=== PATIENT | male | born 1980 | race Caucasian/White ===

== ENCOUNTER 2020-11-12 11:34 | Emergency (ER) | payer OTHER ==
[2020-11-12 11:37] VITALS: BP 143/95; PULSE 102; RESP 20; TEMP 97.6
[2020-11-12 12:04] LABS: Appearance,Urine Clear (Clear); Bilirubin,Urine Negative (Negative); Blood,Urine Negative (Negative); Color,Urine Yellow; Glucose,Urine (UA) Negative (Negative); Ketones,Urine Negative (Negative); Leukocyte Esterase,Urine Negative (Negative); Nitrite,Urine Negative (Negative); PH, Urine 5.5 (5.0-8.0); Protein,Urine Negative (Negative); Specific Gravity,Urine 1.023 (1.001-1.035); Urobilinogen,Urine <2.0 mg/dL (<2.0)
[2020-11-12] MEDS ORDERED: AZITHROMYCIN 250 MG TAB PO STA (12:19)
[2020-11-12] MEDS ORDERED: cefTRIAXone 250 MG VIAL IM STA (12:19)
--- NOTE | 2020-11-12 12:22 | ED ---
General Adult HPI - General Chief complaint: Abdominal Pain Stated complaint: male Time Seen by Provider: 11/12/20 11:39 Source: patient Mode of arrival: ambulatory Limitations: no limitations - History of Present Illness Initial comments: Patient is a 40-year-old male presenting to emergency Department with complaints of dysuria that started intermittent for the last month. He states it "only shah sometimes when he urinates." He denies any abdominal pain, no nausea or vomiting, no sores or swelling. He denies any discharge. He denies any fever or chills. He states he is not concerned for STDs but "is willing to have it checked." He denies taking any medications. He has no pertinent past medical history. He has no further complaints at this time. Upon arrival to the ER his vitals are stable. - Related Data Previous Rx's Medication Instructions Recorded traMADol HCl [Ultram] 50 mg PO Q6H PRN #15 tab 09/17/14 Allergies Allergy/AdvReac Type Severity Reaction Status Date / Time No Known Allergies Allergy Verified 11/12/20 11:37 Review of Systems ROS Statement: Those systems with pertinent positive or pertinent negative responses have been documented in the HPI. ROS Other: All systems not noted in ROS Statement are negative. Past Medical History Past Medical History: No Reported History Additional Past Medical History / Comment(s): back pain History of Any Multi-Drug Resistant Organisms: None Reported Past Surgical History: No Surgical Hx Reported Past Psychological History: No Psychological Hx Reported Smoking Status: Never smoker Past Alcohol Use History: None Reported Past Drug Use History: None Reported General Exam - General Exam Comments Initial Comments: GENERAL: Patient is well-developed and well-nourished. Patient is nontoxic and in no acute distress. HEAD: Atraumatic, normocephalic. EYES: Pupils equal round and reactive to light, extraocular movements intact, sclera anicteric, conjunctiva are normal. Eyelids were unremarkable. ENT: TMs normal, nares patent, oropharynx clear without exudates. Moist mucous membranes. NECK: Normal range of motion, supple without lymphadenopathy or JVD. LUNGS: Unlabored respirations. Breath sounds clear to auscultation bilaterally and equal. No wheezes rales or rhonchi. HEART: Regular rate and rhythm without murmurs, rubs or gallops. ABDOMEN: Soft, nontender, normoactive bowel sounds. No guarding, no rebound. No masses appreciated. : Deferred MUSCULOSKELETAL: Normal extremities with adequate strength and normal range of motion, no pitting or edema. No clubbing or cyanosis. NEUROLOGICAL: Patient is alert and oriented x 3. Motor and sensory are also intact. Normal speech, normal gait. PSYCH: Normal mood, normal affect. SKIN: Warm, Dry, normal turgor, no rashes or lesions noted. Limitations: no limitations Course Vital Signs 11/12/20 11:34 Temperature 97.6 F Pulse Rate 102 H Respiratory 20 Rate Blood Pressure 143/95 O2 Sat by Pulse 97 Oximetry Medical Decision Making - Medical Decision Making Patient is a 40-year-old male presenting with dysuria and intermittent for the past month. He has no other symptoms, no pain at this time. His exam is unremarkable, no sores, no swelling, no discharge. Patient's analysis is unremarkable. I did add on a gonorrhea, chlamydia, Trichomonas which are all pending. She will be treated for possible gonorrhea and chlamydia with Rocephin and azithromycin today. If symptoms persist and testing are all negative, he will follow up with his PCP. He is in agreement this plan of care. He is stable for discharge. Case discussed with Dr. Sen. - Lab Data Lab Results 11/12/20 Range/Units 11:54 Urine Color Yellow Urine Appearance Clear (Clear) Urine pH 5.5 (5.0-8.0) Ur Specific Art 1.023 (1.001-1.035) Urine Protein Negative (Negative) Urine Glucose (UA) Negative (Negative) Urine Ketones Negative (Negative) Urine Blood Negative (Negative) Urine Nitrite Negative (Negative) Urine Bilirubin Negative (Negative) Urine Urobilinogen <2.0 (<2.0) mg/dL Ur Leukocyte Esterase Negative (Negative) Disposition Clinical Impression: Dysuria Disposition: HOME SELF-CARE Condition: Stable Instructions (If sedation given, give patient instructions): Dysuria (ED) Additional Instructions: Please return to the Emergency Department if symptoms worsen or any other concerns. If symptoms persist, follow up with your regular doctor. Is patient prescribed a controlled substance at d/c from ED?: No Referrals: Juventino Magana MD [Primary Care Provider] - 1-2 days
== END 2020-11-12 12:31 | disposition home or self-care (01) ==
LOC: EC 11:34
DX: R30.0 Dysuria (principal)
CPT/HCPCS: 81003; 87491; 87591; 99284; 96372; J0696

== ENCOUNTER 2021-10-10 13:21 | Emergency (ER) | payer OTHER ==
[2021-10-10 13:54] VITALS: BP 123/85; PULSE 74; RESP 18; TEMP 99.7
[2021-10-10] MEDS ORDERED: FLUORESCEIN STRIPS 1 MG STRIP BOTH EYES ONE (15:22)
--- NOTE | 2021-10-10 15:49 | ED ---
General Adult HPI - General Chief complaint: Eye Problems Stated complaint: L Eye Problem Time Seen by Provider: 10/10/21 15:04 Source: patient, RN notes reviewed Limitations: no limitations - History of Present Illness Initial comments: 41-year-old male presents to the emergency department for evaluation of left eye irritation. States this is been an ongoing issue for several weeks and was seen by an grief counselor who referred him to an derrick car operator. However, patient states he woke up this morning with drainage from the left eye which is new for him. He describes the drainage as thick and yellow. Patient denies any vision changes, blurry vision, foreign body, or injury. - Related Data Previous Rx's Medication Instructions Recorded Polymyxin B-Trimeth Sulf Ophth 1 drops LEFT EYE Q6H 7 Days #10 ml 10/10/21 [Polytrim Opthalmic] Allergies Allergy/AdvReac Type Severity Reaction Status Date / Time No Known Allergies Allergy Verified 10/10/21 13:52 Review of Systems ROS Statement: Those systems with pertinent positive or pertinent negative responses have been documented in the HPI. ROS Other: All systems not noted in ROS Statement are negative. Past Medical History Past Medical History: No Reported History Additional Past Medical History / Comment(s): back pain History of Any Multi-Drug Resistant Organisms: None Reported Past Surgical History: No Surgical Hx Reported Past Psychological History: No Psychological Hx Reported Smoking Status: Never smoker Past Alcohol Use History: None Reported Past Drug Use History: None Reported General Exam Limitations: no limitations General appearance: alert, in no apparent distress Eye exam: Present: PERRL, EOMI, conjunctival injection (left eye). Absent: periorbital swelling, periorbital tenderness Pupils: Present: normal accommodation, other (No focal area of fluorescein uptake bilaterally) Expanded Eyelids: Normal Inspection: Bilateral Pupils: Regular, Round: Bilateral, Reactive: Bilateral Sclera/Conjunctival: Normal Inspection: Right, Injection: Left Visual acuity (R) = 20/: 20 Visual acuity (L) = 20/: 20 With correction: No IOP (R) in mmH IOP (L) in mmH IOP measured with: Tonopen ENT exam: Present: normal exam, normal oropharynx, mucous membranes moist Respiratory exam: Present: normal lung sounds bilaterally. Absent: respiratory distress, wheezes, rales, rhonchi, stridor Cardiovascular Exam: Present: regular rate, normal rhythm, normal heart sounds. Absent: systolic murmur, diastolic murmur, rubs, gallop, clicks GI/Abdominal exam: Present: soft, normal bowel sounds. Absent: distended, tenderness, guarding, rebound, rigid Neurological exam: Present: alert, oriented X3, CN II-XII intact Psychiatric exam: Present: normal affect, normal mood Skin exam: Present: warm, dry, intact, normal color. Absent: rash Course Vital Signs 10/10/21 13:52 Temperature 99.7 F H Pulse Rate 74 Respiratory 18 Rate Blood Pressure 123/85 O2 Sat by Pulse 98 Oximetry Medical Decision Making - Medical Decision Making 41-year-old male with no significant past medical history presents to the emergency department for evaluation of left eye irritation. Conjunctival injection noted to the left eye; no active drainage at this time. No injury, trauma, or foreign body. No vision changes. Visual acuity 20/20 bilaterally. Fluorescein exam negative for any focal area of uptake. IOP within normal limits. Patient will be prescribed antibiotic eyedrops and instructed to follow-up with ophthalmology as scheduled. Return parameters were discussed in detail. Patient verbalizes understanding and agrees with this plan. This patient's care was discussed with my attending Dr. Marina. Disposition Clinical Impression: Bacterial conjunctivitis Disposition: HOME SELF-CARE Condition: Stable Instructions (If sedation given, give patient instructions): Conjunctivitis (ED ) Additional Instructions: Follow-up with Dr. Magana as we discussed. Use the antibiotic eyedrops as directed. Wash your hands frequently. Return to the emergency department with any new, worsening, or concerning symptoms. Prescriptions: Polymyxin B-Trimeth Sulf Ophth [Polytrim Opthalmic] 1 drops LEFT EYE Q6H 7 Days #10 ml Is patient prescribed a controlled substance at d/c from ED?: No Referrals: Juventino Magana MD [Primary Care Provider] - 1-2 days
== END 2021-10-10 16:41 | disposition home or self-care (01) ==
LOC: EC 13:21
DX: H10.9 Unspecified conjunctivitis (principal)
CPT/HCPCS: 99283

== ENCOUNTER → 2022-05-28 | Outpatient (CLI) | payer OTHER ==
--- NOTE | 2022-05-29 10:18 | CA ---
Transthoracic Echo Report Name: Gavino Alcala Age: 41 Gender: M : 1980 Exam Date: 05/28/2022 13:20 Exam Location: [place] [facility] Ht (in): 71 Wt (lb): 217 Ordering Physician: Juventino Magana MD Attending/Referring Phys: [place] BLAS Field Recorder Shama Merritt RDCS Procedure CPT: Indications: R42 Dizziness, I49.2 fluttering of heart Cardiac Hx: Technical Quality: Fair Contrast 1: Total Dose (mL): Contrast 2: Total Dose (mL): MEASUREMENTS (Male / Female) Normal Values 2D ECHO LV Diastolic Diameter PLAX 4.2 cm 4.2 - 5.9 / 3.9 - 5.3 cm LV Systolic Diameter PLAX 2.7 cm IVS Diastolic Thickness 1.2 cm 0.6 - 1.0 / 0.6 - 0.9 cm LVPW Diastolic Thickness 1.1 cm 0.6 - 1.0 / 0.6 - 0.9 cm LV Relative Wall Thickness 0.6 RV Internal Dim ED PLAX 2.2 cm LA Volume 25.9 cm??? 18 - 58 / 22 - 52 cm??? M-MODE Aortic Root Diameter MM 3.5 cm LA Systolic Diameter MM 3.3 cm LA Ao Ratio MM 0.9 MV E Point Septal Separation 1.4 cm AV Cusp Separation MM 2.3 cm DOPPLER AV Peak Velocity 124.5 cm/s AV Peak Gradient 6.2 mmHg MV Area PHT 4.6 cm??? MR Peak Velocity 347.4 cm/s MR Peak Gradient 48.3 mmHg Mitral E Point Velocity 64.8 cm/s Mitral A Point Velocity 80.4 cm/s Mitral E to A Ratio 0.8 MV Deceleration Time 164.5 ms MV E' Velocity 6.6 cm/s Mitral E to MV E' Ratio 9.8 TR Peak Velocity 136.0 cm/s TR Peak Gradient 7.4 mmHg Right Ventricular Systolic Press 12.3 mmHg FINDINGS Left Ventricle Mildly increased septal wall thickness. Left ventricular ejection fraction is estimated at 50-55 %. Left ventricular cavity size normal. Right Ventricle The right ventricle is normal in size and function. Right Atrium The right atrium is normal in size. Left Atrium The left atrium is normal in size. Mitral Valve Structurally normal mitral valve without significant stenosis or prolapse. There is trace mitral regurgitation. Aortic Valve Structurally normal aortic valve without significant sclerosis or stenosis. There is no aortic regurgitation. Tricuspid Valve Structurally normal tricuspid valve without significant stenosis. Pulmonary artery systolic pressure is normal. Trace tricuspid regurgitation. Pulmonic Valve Structurally normal pulmonic valve without significant stenosis. There is no pulmonic regurgitation. Pericardium Normal pericardium without effusion. Aorta Normal aortic root dimension. CONCLUSIONS Normal left ventricular dimension and systolic function Previewed by: Dr. Elio Lovett MD (Electronically Signed) Final Date: 29 May 2022 10:17
== END | disposition home or self-care (01) ==
LOC: RADECHMAIN 13:16
PROVIDERS: ATTEND Family Medicine
DX: R42 Dizziness and giddiness (principal); I49.2 Junctional premature depolarization
CPT/HCPCS: 93306

== ENCOUNTER 2022-06-14 21:28 | Emergency (ER) | payer OTHER ==
[2022-06-14 21:45] VITALS: BP 118/81; PULSE 91; RESP 16; TEMP 98.9
--- NOTE | 2022-06-14 22:14 | XR ---
EXAMINATION TYPE: XR knee complete RT DATE OF EXAM: 06/14/2022 COMPARISON: NONE HISTORY: Knee pain TECHNIQUE: 3 views FINDINGS: There is intramedullary marla in the proximal tibia. I see no fracture nor dislocation. Knee joint spaces are fairly normal. No significant knee joint effusion. IMPRESSION: No acute abnormality of the right knee.
== END 2022-06-14 22:36 | disposition left against medical advice (07) ==
LOC: EC 21:28
DX: Z53.21 Procedure and treatment not carried out due to patient leaving prior to being seen by health care provider (principal); R52 Pain, unspecified
CPT/HCPCS: 99499

== ENCOUNTER 2022-07-04 11:16 | Emergency (ER) | payer OTHER ==
[2022-07-04 11:21] VITALS: RESP 18
[2022-07-04] MEDS ORDERED: SODIUM CHLORIDE 0.9% 1,000 ML IV STA (11:30)
[2022-07-04] MEDS ORDERED: ONDANSETRON 4 MG/2 ML VIAL IVP STA (11:30)
[2022-07-04] MEDS ORDERED: FAMOTIDINE 20 MG/2 ML VIAL IV STA (11:31)
--- NOTE | 2022-07-04 11:35 | ED ---
Nausea/Vomiting/Diarrhea HPI - General Chief complaint: Nausea/Vomiting/Diarrhea Stated complaint: Nausea,abd pain Time Seen by Provider: 07/04/22 11:18 Source: patient, RN notes reviewed Mode of arrival: ambulatory Limitations: no limitations - History of Present Illness Initial comments: This is a 41-year-old male who presents to the emergency department for nausea and left knee pain. Patient states that when he woke up this morning, he felt very nauseous. He has not had any episodes of vomiting. States that he had tomatoes last night and wonders if that upset his stomach. He reports associated diarrhea. Denies any abdominal pain. Additionally, he states that he has been experiencing increasing left knee pain. States that he has had arth ritis in the left knee for the last couple of years. He works as a electric train driver, and states that keeping his knee bent in one position for long periods of time contributes to increased episodes of pain. This is similar to episodes of pain he has had in the past. He has not taken anything for the pain. Denies any fevers, chills, sore throat, cough, dyspnea, chest pain, palpitations, abdominal pain, vomiting, back pain, or headaches. MD complaint: nausea, diarrhea Associated Abdominal Pain: No - Related Data Previous Rx's Medication Instructions Recorded Ondansetron Odt [Zofran Odt] 4 mg PO Q8HR PRN #15 tab 07/04/22 Allergies Allergy/AdvReac Type Severity Reaction Status Date / Time No Known Allergies Allergy Verified 07/04/22 12:35 Review of Systems ROS Statement: Those systems with pertinent positive or pertinent negative responses have been documented in the HPI. ROS Other: All systems not noted in ROS Statement are negative. Past Medical History Past Medical History: No Reported History Additional Past Medical History / Comment(s): back pain History of Any Multi-Drug Resistant Organisms: None Reported Past Surgical History: No Surgical Hx Reported Past Psychological History: No Psychological Hx Reported Smoking Status: Never smoker Past Alcohol Use History: None Reported Past Drug Use History: None Reported General Exam Limitations: no limitations General appearance: alert, in no apparent distress Head exam: Present: atraumatic, normocephalic, normal inspection Respiratory exam: Present: normal lung sounds bilaterally. Absent: respiratory distress, wheezes, rales, rhonchi, stridor Cardiovascular Exam: Present: regular rate, normal rhythm, normal heart sounds. Absent: systolic murmur, diastolic murmur, rubs, gallop, clicks GI/Abdominal exam: Present: soft, normal bowel sounds. Absent: distended, tenderness, guarding, rebound, rigid Extremities exam: Present: other (No swelling or tenderness over the left patella. Negative Myles's. Full active and passive range of motion.) Neurological exam: Present: alert, oriented X3, CN II-XII intact Psychiatric exam: Present: normal affect, normal mood Skin exam: Present: warm, dry, intact, normal color. Absent: rash Course Vital Signs 07/04/22 07/04/22 11:19 11:50 Temperature 98.3 F Pulse Rate 80 Respiratory 18 18 Rate Blood Pressure 121/82 O2 Sat by Pulse 99 Oximetry Medical Decision Making - Medical Decision Making This is a 41-year-old male who presents to the emergency department for nausea and left knee pain. Lab work was nonactionable. Urinalysis was negative for any signs of infection. X-ray of the left knee obtained revealing no acute irregularities. He was given a dose of IV Solu-Medrol to help with pain, swelling, and inflammation of the knee. Patient was also given IV fluids, Zofran, and Pepcid, which he states helped the nausea and queasiness he was experiencing. He is overall feeling much better and is stable for discharge home. Prescription for Zofran sent to the pharmacy to be taken up to every 8 hours as needed for nausea and vomiting. He is instructed to remain well- hydrated and slowly advance his diet as tolerated. Advised ibuprofen and Tyle nol as needed for pain relief for the knee. Return precautions reviewed in depth, the patient is instructed to return to the emergency department with any new, worsening, or concerning symptoms. Patient verbalized understanding. This case was discussed in detail with the attending ED physician. Presentation, findings, and treatment plan discussed in detail as well. - Lab Data Result diagrams: 07/04/22 11:44 07/04/22 11:44 Lab Results 07/04/22 07/04/22 07/04/22 Range/Units 11:44 11:44 12:18 WBC 9.3 (3.8-10.6) k/uL RBC 4.57 (4.30-5.90) m/uL Hgb 15.2 (13.0-17.5) gm/dL Hct 45.1 (39.0-53.0) % MCV 98.7 (80.0-100.0) fL MCH 33.2 (25.0-35.0) pg MCHC 33.7 (31.0-37.0) g/dL RDW 12.8 (11.5-15.5) % Plt Count 201 (150-450) k/uL MPV 8.3 Neutrophils % 67 % Lymphocytes % 24 % Monocytes % 5 % Eosinophils % 2 % Basophils % 0 % Neutrophils # 6.3 (1.3-7.7) k/uL Lymphocytes # 2.3 (1.0-4.8) k/uL Monocytes # 0.4 (0-1.0) k/uL Eosinophils # 0.2 (0-0.7) k/uL Basophils # 0.0 (0-0.2) k/uL Sodium 139 (137-145) mmol/L Potassium 3.9 (3.5-5.1) mmol/L Chloride 107 (98-107) mmol/L Carbon Dioxide 23 (22-30) mmol/L Anion Gap 9 mmol/L BUN 17 (9-20) mg/dL Creatinine 0.84 (0.66-1.25) mg/dL Est GFR (CKD-EPI)AfAm >90 (>60 ml/min/1.73 sqM) Est GFR (CKD-EPI)NonAf >90 (>60 ml/min/1.73 sqM) Glucose 147 H (74-99) mg/dL Calcium 9.3 (8.4-10.2) mg/dL Total Bilirubin 0.5 (0.2-1.3) mg/dL AST 20 (17-59) U/L ALT 21 (4-49) U/L Alkaline Phosphatase 75 (38-126) U/L Total Protein 6.4 (6.3-8.2) g/dL Albumin 4.3 (3.5-5.0) g/dL Amylase 77 (30-110) U/L Lipase 162 (23-300) U/L Urine Color Yellow Urine Appearance Clear (Clear) Urine pH 6.5 (5.0-8.0) Ur Specific [place] 1.029 (1.001-1.035) Urine Protein Trace H (Negative) Urine Glucose (UA) Negative (Negative) Urine Ketones Negative (Negative) Urine Blood Negative (Negative) Urine Nitrite Negative (Negative) Urine Bilirubin Negative (Negative) Urine Urobilinogen 2.0 (<2.0) mg/dL Ur Leukocyte Esterase Negative (Negative) - Radiology Data Radiology results: report reviewed, image reviewed Disposition Clinical Impression: Nausea Disposition: HOME SELF-CARE Instructions (If sedation given, give patient instructions): Acute Nausea and Vomiting (ED), Knee Pain (ED) Additional Instructions: Return to the emergency department with any new, worsening, or concerning symptoms. The Zofran can be taken up to every 8 hours as needed for nausea and vomiting. Slowly advance your diet as tolerated and make sure that you remain well-hydrated. Alternate with ibuprofen and Tylenol as needed for pain relief to the knee. Prescriptions: Ondansetron Odt [Zofran Odt] 4 mg PO Q8HR PRN #15 tab PRN Reason: Nausea And Vomiting Is patient prescribed a controlled substance at d/c from ED?: No Referrals: Juventino Magana MD [Primary Care Provider] - 1-2 days
[2022-07-04 11:57] LABS: Basophils % (A) 0 %; Eosinophils # (A) 0.2 k/uL (0-0.7); Eosinophils % (A) 2 %; HCT 45.1 % (39.0-53.0); HGB 15.2 gm/dL (13.0-17.5); Lymphocytes # (A) 2.3 k/uL (1.0-4.8); Lymphocytes % (A) 24 %; MCH 33.2 pg (25.0-35.0); MCHC 33.7 g/dL (31.0-37.0); MCV 98.7 fL (80.0-100.0); Mean Platelet Volume 8.3; Monocytes # (A) 0.4 k/uL (0-1.0); Monocytes % (A) 5 %; Neutrophils # (A) 6.3 k/uL (1.3-7.7); Neutrophils % (A) 67 %; Platelet Count 201 k/uL (150-450); RBC 4.57 m/uL (4.30-5.90); RDW 12.8 % (11.5-15.5); WBC 9.3 k/uL (3.8-10.6)
[2022-07-04 12:10] LABS: ALT 21 U/L (4-49); AST 20 U/L (17-59); African American GFR (CKD) >90 (>60 ml/min/1.73 sqM); Albumin 4.3 g/dL (3.5-5.0); Alkaline Phosphatase 75 U/L (38-126); Amylase 77 U/L (30-110); Anion Gap 9 mmol/L; Blood Urea Nitrogen 17 mg/dL (9-20); Calcium 9.3 mg/dL (8.4-10.2); Carbon Dioxide 23 mmol/L (22-30); Chloride 107 mmol/L (98-107); Glucose 147 mg/dL (74-99); Lipase 162 U/L (23-300); Non-African American GFR(CKD) >90 (>60 ml/min/1.73 sqM); Potassium 3.9 mmol/L (3.5-5.1); Sodium 139 mmol/L (137-145); Total Bilirubin 0.5 mg/dL (0.2-1.3); Total Protein 6.4 g/dL (6.3-8.2)
[2022-07-04] MEDS ORDERED: methylPREDNISolone SOD SUCCI 125 MG/2 ML VIAL IV STA (12:14)
--- NOTE | 2022-07-04 12:23 | XR ---
EXAMINATION TYPE: XR knee complete LT DATE OF EXAM: 07/04/2022 COMPARISON: None HISTORY: 41-year-old male with left knee pain TECHNIQUE: AP, oblique, and lateral views FINDINGS: No knee joint effusion. Extensor mechanism is intact. No acute fracture, subluxation, or dislocation is seen. IMPRESSION: No acute osseous abnormality seen.
[2022-07-04 12:44] LABS: Appearance,Urine Clear (Clear); Bilirubin,Urine Negative (Negative); Blood,Urine Negative (Negative); Color,Urine Yellow; Glucose,Urine (UA) Negative (Negative); Ketones,Urine Negative (Negative); Leukocyte Esterase,Urine Negative (Negative); Nitrite,Urine Negative (Negative); PH, Urine 6.5 (5.0-8.0); Protein,Urine Trace (Negative); Specific Gravity,Urine 1.029 (1.001-1.035)
[2022-07-04 13:02] VITALS: BP 115/70; PULSE 73; TEMP 98.4
== END 2022-07-04 13:02 | disposition home or self-care (01) ==
LOC: EC 11:16
DX: R11.2 Nausea with vomiting, unspecified (principal); M25.562 Pain in left knee
CPT/HCPCS: 36415; 80053; 82150; 83690; 85025; 81003; 73562; 99284; 96374; 96375 ×2; 96361; J2930; J2405

== ENCOUNTER 2022-07-10 10:46 | Emergency (ER) | payer OTHER ==
[2022-07-10 11:45] VITALS: RESP 16
[2022-07-10] MEDS ORDERED: ACYCLOVIR 400 MG/10 ML CUP PO ONE (13:22)
[2022-07-10] MEDS ORDERED: ACYCLOVIR 200 MG CAP PO ONE ×2 (13:30→14:28)
[2022-07-10 14:30] LABS: Appearance,Urine Clear (Clear); Bilirubin,Urine Negative (Negative); Blood,Urine Negative (Negative); Color,Urine Light Yellow; Glucose,Urine (UA) Negative (Negative); Ketones,Urine Negative (Negative); Leukocyte Esterase,Urine Negative (Negative); Nitrite,Urine Negative (Negative); PH, Urine 6.5 (5.0-8.0); Protein,Urine Negative (Negative); Specific Gravity,Urine 1.013 (1.001-1.035); Urobilinogen,Urine <2.0 mg/dL (<2.0)
[2022-07-10 14:33] LABS: ALT 23 U/L (4-49); AST 22 U/L (17-59); African American GFR (CKD) >90 (>60 ml/min/1.73 sqM); Albumin 4.6 g/dL (3.5-5.0); Alkaline Phosphatase 78 U/L (38-126); Anion Gap 11 mmol/L; Blood Urea Nitrogen 13 mg/dL (9-20); Calcium 9.5 mg/dL (8.4-10.2); Carbon Dioxide 23 mmol/L (22-30); Chloride 104 mmol/L (98-107); Glucose 114 mg/dL (74-99); Lipase 60 U/L (23-300); Non-African American GFR(CKD) >90 (>60 ml/min/1.73 sqM); Potassium 4.3 mmol/L (3.5-5.1); Sodium 138 mmol/L (137-145); Total Bilirubin 0.5 mg/dL (0.2-1.3); Total Protein 6.8 g/dL (6.3-8.2)
[2022-07-10 14:34] LABS: Basophils # (A) 0.1 k/uL (0-0.2); Basophils % (A) 0 %; Eosinophils # (A) 0.1 k/uL (0-0.7); Eosinophils % (A) 1 %; HCT 46.8 % (39.0-53.0); HGB 15.9 gm/dL (13.0-17.5); Lymphocytes # (A) 2.7 k/uL (1.0-4.8); Lymphocytes % (A) 24 %; MCH 33.1 pg (25.0-35.0); MCHC 33.9 g/dL (31.0-37.0); MCV 97.7 fL (80.0-100.0); Mean Platelet Volume 8.7; Monocytes # (A) 0.4 k/uL (0-1.0); Monocytes % (A) 4 %; Neutrophils # (A) 7.9 k/uL (1.3-7.7); Neutrophils % (A) 70 %; Platelet Count 215 k/uL (150-450); RBC 4.79 m/uL (4.30-5.90); RDW 13.1 % (11.5-15.5); WBC 11.4 k/uL (3.8-10.6)
--- NOTE | 2022-07-10 15:37 | ED ---
Skin/Abscess/FB HPI - General Chief complaint: Skin/Abscess/Foreign Body Stated complaint: stomach pain Time Seen by Provider: 07/10/22 13:04 Source: patient Mode of arrival: ambulatory Limitations: no limitations - History of Present Illness Initial comments: Patient is a 41-year-old otherwise healthy male who presents to the emergency department with a chief complaint of abdominal pain. Patient states his stomach hurt for approximately 30 minutes this morning which has since resolved. Pain was all over his abdomen. Patient states he had a bowel movement which made it feel better. Bowel movement was nonbloody, no diarrhea. States he had fish for dinner last night which he thinks is related to the pain. Denies fever, chills, nausea, vomiting. Patient also concern with rash over his buttocks. States he has fleas in his house and feels that rash is related to fleas. Noticed a rash 2 weeks ago. Rash is not painful. It is no longer itchy. Patient also expresses concern regarding lesions on his penis. States he has history of genital herpes and feels that he is having an outbreak. States the lesions were initially painful. Denies penile discharge and burning with urination. Denies eye pain, blurry vision. - Related Data Previous Rx's Medication Instructions Recorded Acyclovir 800 mg PO TID 5 Days #15 tab 07/10/22 Allergies Allergy/AdvReac Type Severity Reaction Status Date / Time No Known Allergies Allergy Verified 07/10/22 14:44 Review of Systems ROS Statement: Those systems with pertinent positive or pertinent negative responses have been documented in the HPI. ROS Other: All systems not noted in ROS Statement are negative. Past Medical History Past Medical History: No Reported History Additional Past Medical History / Comment(s): back pain History of Any Multi-Drug Resistant Organisms: None Reported Past Surgical History: No Surgical Hx Reported Past Psychological History: No Psychological Hx Reported Smoking Status: Never smoker Past Alcohol Use History: None Reported Past Drug Use History: None Reported General Exam Limitations: no limitations General appearance: alert, in no apparent distress Head exam: Present: atraumatic, normocephalic, normal inspection Respiratory exam: Present: normal lung sounds bilaterally. Absent: respiratory distress, wheezes, rales, rhonchi, stridor Cardiovascular Exam: Present: regular rate, normal rhythm, normal heart sounds. Absent: systolic murmur, diastolic murmur, rubs, gallop, clicks GI/Abdominal exam: Present: soft, normal bowel sounds. Absent: distended, tenderness, guarding, rebound, rigid Rectal exam: Present: other (flea bites in gluteal cleft region without surrounding erythema/swelling ) exam: Present: other (3 lesions over dorsal penis resembling HSV ) Neurological exam: Present: alert, oriented X3, CN II-XII intact Psychiatric exam: Present: normal affect, normal mood Skin exam: Present: warm, dry, intact, normal color. Absent: rash Course Vital Signs 07/10/22 07/10/22 11:43 15:48 Temperature 98.2 F 97.8 F Pulse Rate 93 85 Respiratory 16 16 Rate Blood Pressure 142/96 119/76 O2 Sat by Pulse 98 98 Oximetry Medical Decision Making - Medical Decision Making This is a 41-year-old male presenting after episode of abdominal pain that has since resolved.Patient well-appearing. Afebrile. The abdomen is soft and nontender. Healing flea bites over her gluteal cleft and HSV lesions on dorsal penis. Laboratory studies obtained. There is very mild leukocytosis at 11.4. Other laboratory studies are unremarkable. Given patient's history of HSV and physical exam I will treat him for outbreak. Patient also requests testing for other sexually transmitted infections. Chlamydia, gonorrhea, and syphilis testing were performed. Patient to follow up with primary care provider. Dr. Marina is my attending. - Lab Data Result diagrams: 07/10/22 14:10 07/10/22 14:10 Lab Results 07/10/22 07/10/22 07/10/22 Range/Units 11:53 14:10 14:10 WBC 11.4 H (3.8-10.6) k/uL RBC 4.79 (4.30-5.90) m/uL Hgb 15.9 (13.0-17.5) gm/dL Hct 46.8 (39.0-53.0) % MCV 97.7 (80.0-100.0) fL MCH 33.1 (25.0-35.0) pg MCHC 33.9 (31.0-37.0) g/dL RDW 13.1 (11.5-15.5) % Plt Count 215 (150-450) k/uL MPV 8.7 Neutrophils % 70 % Lymphocytes % 24 % Monocytes % 4 % Eosinophils % 1 % Basophils % 0 % Neutrophils # 7.9 H (1.3-7.7) k/uL Lymphocytes # 2.7 (1.0-4.8) k/uL Monocytes # 0.4 (0-1.0) k/uL Eosinophils # 0.1 (0-0.7) k/uL Basophils # 0.1 (0-0.2) k/uL Sodium (137-145) mmol/L Potassium (3.5-5.1) mmol/L Chloride (98-107) mmol/L Carbon Dioxide (22-30) mmol/L Anion Gap mmol/L BUN (9-20) mg/dL Creatinine (0.66-1.25) mg/dL Est GFR (CKD-EPI)AfAm (>60 ml/min/1.73 sqM) Est GFR (CKD-EPI)NonAf (>60 ml/min/1.73 sqM) Glucose (74-99) mg/dL Calcium (8.4-10.2) mg/dL Total Bilirubin (0.2-1.3) mg/dL AST (17-59) U/L ALT (4-49) U/L Alkaline Phosphatase (38-126) U/L Total Protein (6.3-8.2) g/dL Albumin (3.5-5.0) g/dL Lipase (23-300) U/L Urine Color Light Yellow Urine Appearance Clear (Clear) Urine pH 6.5 (5.0-8.0) Ur Specific [place] 1.013 (1.001-1.035) Urine Protein Negative (Negative) Urine Glucose (UA) Negative (Negative) Urine Ketones Negative (Negative) Urine Blood Negative (Negative) Urine Nitrite Negative (Negative) Urine Bilirubin Negative (Negative) Urine Urobilinogen <2.0 (<2.0) mg/dL Ur Leukocyte Esterase Negative (Negative) Treponema pallidum Ab (Nonreactive) Chlamydia Source Chlamydia DNA (PCR) (Neg,Equiv) Coronavirus (PCR) Not Detected (Not Detectd) N. gonorrhoeae Source N.gonorrhoeae DNA Probe (Neg,Equiv) 07/10/22 07/10/22 07/10/22 Range/Units 14:10 14:10 15:00 WBC (3.8-10.6) k/uL RBC (4.30-5.90) m/uL Hgb (13.0-17.5) gm/dL Hct (39.0-53.0) % MCV (80.0-100.0) fL MCH (25.0-35.0) pg MCHC (31.0-37.0) g/dL RDW (11.5-15.5) % Plt Count (150-450) k/uL MPV Neutrophils % % Lymphocytes % % Monocytes % % Eosinophils % % Basophils % % Neutrophils # (1.3-7.7) k/uL Lymphocytes # (1.0-4.8) k/uL Monocytes # (0-1.0) k/uL Eosinophils # (0-0.7) k/uL Basophils # (0-0.2) k/uL Sodium 138 (137-145) mmol/L Potassium 4.3 (3.5-5.1) mmol/L Chloride 104 (98-107) mmol/L Carbon Dioxide 23 (22-30) mmol/L Anion Gap 11 mmol/L BUN 13 (9-20) mg/dL Creatinine 0.84 (0.66-1.25) mg/dL Est GFR (CKD-EPI)AfAm >90 (>60 ml/min/1.73 sqM) Est GFR (CKD-EPI)NonAf >90 (>60 ml/min/1.73 sqM) Glucose 114 H (74-99) mg/dL Calcium 9.5 (8.4-10.2) mg/dL Total Bilirubin 0.5 (0.2-1.3) mg/dL AST 22 (17-59) U/L ALT 23 (4-49) U/L Alkaline Phosphatase 78 (38-126) U/L Total Protein 6.8 (6.3-8.2) g/dL Albumin 4.6 (3.5-5.0) g/dL Lipase 60 (23-300) U/L Urine Color Urine Appearance (Clear) Urine pH (5.0-8.0) Ur Specific [place] (1.001-1.035) Urine Protein (Negative) Urine Glucose (UA) (Negative) Urine Ketones (Negative) Urine Blood (Negative) Urine Nitrite (Negative) Urine Bilirubin (Negative) Urine Urobilinogen (<2.0) mg/dL Ur Leukocyte Esterase (Negative) Treponema pallidum Ab Nonreactive (Nonreactive) Chlamydia Source Urine Chlamydia DNA (PCR) Negative (Neg,Equiv) Coronavirus (PCR) (Not Detectd) N. gonorrhoeae Source Urine N.gonorrhoeae DNA Probe Negative (Neg,Equiv) Disposition Clinical Impression: Stomach pain, Flea bite, Herpes simplex virus (HSV) infection Disposition: HOME SELF-CARE Condition: Good Instructions (If sedation given, give patient instructions): Genital Herpes Simplex (ED) Additional Instructions: Take medication as directed. Follow-up with primary care provider in one to 2 days. Return to the emergency department if you experience new, concerning, or worsening symptoms. Prescriptions: Acyclovir 800 mg PO TID 5 Days #15 tab Is patient prescribed a controlled substance at d/c from ED?: No Referrals: Juventino Magana MD [Primary Care Provider] - 1-2 days Time of Disposition: 15:37
[2022-07-10 15:49] VITALS: BP 119/76; PULSE 85; TEMP 97.8
[2022-07-11 15:27] LABS: C. trachomatis,PCR Negative (Neg,Equiv); Chlamydia trachomatis Source Urine; N. gonorrhoeae,PCR Negative (Neg,Equiv); Neisseria Source Urine
== END 2022-07-10 15:50 | disposition home or self-care (01) ==
LOC: EC 10:46
DX: B00.9 Herpesviral infection, unspecified (principal); R10.9 Unspecified abdominal pain; Z20.822 Contact with and (suspected) exposure to COVID-19
CPT/HCPCS: 36415; 80053; 81003; 83690; 85025; 86780; 87491; 87591; 87635; 99283

== ENCOUNTER 2022-07-17 08:53 | Emergency (ER) | payer OTHER ==
[2022-07-17 09:45] VITALS: BP 119/85; PULSE 75; RESP 16; TEMP 98.3
[2022-07-17] MEDS ORDERED: cefTRIAXone 1,000 MG VIAL (IM USE) IM STA (10:48)
[2022-07-17 11:01] LABS: Appearance,Urine Clear (Clear); Bilirubin,Urine Negative (Negative); Blood,Urine Negative (Negative); Color,Urine Yellow; Glucose,Urine (UA) Negative (Negative); Ketones,Urine Negative (Negative); Leukocyte Esterase,Urine Negative (Negative); Nitrite,Urine Negative (Negative); PH, Urine 5.5 (5.0-8.0); Protein,Urine Trace (Negative); Specific Gravity,Urine 1.022 (1.001-1.035); Urobilinogen,Urine <2.0 mg/dL (<2.0)
--- NOTE | 2022-07-17 11:04 | ED ---
General Adult HPI - General Chief complaint: Urogenital Stated complaint: painful urination Time Seen by Provider: 07/17/22 09:46 Source: patient, RN notes reviewed Mode of arrival: ambulatory Limitations: no limitations - Related Data Previous Rx's Medication Instructions Recorded Acyclovir 800 mg PO TID 5 Days #15 tab 07/10/22 Doxycycline [Vibramycin] 100 mg PO BID #14 capsule 07/17/22 Allergies Allergy/AdvReac Type Severity Reaction Status Date / Time No Known Allergies Allergy Verified 07/17/22 09:44 Review of Systems ROS Statement: Those systems with pertinent positive or pertinent negative responses have been documented in the HPI. ROS Other: All systems not noted in ROS Statement are negative. Past Medical History Past Medical History: No Reported History Additional Past Medical History / Comment(s): back pain History of Any Multi-Drug Resistant Organisms: None Reported Past Surgical History: No Surgical Hx Reported Past Psychological History: No Psychological Hx Reported Smoking Status: Never smoker Past Alcohol Use History: None Reported Past Drug Use History: None Reported General Exam Limitations: no limitations Course Vital Signs 07/17/22 09:42 Temperature 98.3 F Pulse Rate 75 Respiratory 16 Rate Blood Pressure 119/85 O2 Sat by Pulse 99 Oximetry Medical Decision Making - Lab Data Lab Results 07/17/22 Range/Units 10:26 Urine Color Yellow Urine Appearance Clear (Clear) Urine pH 5.5 (5.0-8.0) Ur Specific [place] 1.022 (1.001-1.035) Urine Protein Trace H (Negative) Urine Glucose (UA) Negative (Negative) Urine Ketones Negative (Negative) Urine Blood Negative (Negative) Urine Nitrite Negative (Negative) Urine Bilirubin Negative (Negative) Urine Urobilinogen <2.0 (<2.0) mg/dL Ur Leukocyte Esterase Negative (Negative) Disposition Clinical Impression: Dysuria Disposition: HOME SELF-CARE Condition: Stable Instructions (If sedation given, give patient instructions): Dysuria (ED) Additional Instructions: Please return to the Emergency Department if symptoms worsen or any other concerns. Prescriptions: Doxycycline [Vibramycin] 100 mg PO BID #14 capsule Is patient prescribed a controlled substance at d/c from ED?: No Referrals: Juventino Magana MD [Primary Care Provider] - 1-2 days Time of Disposition: 11:04
[2022-07-18 17:18] LABS: C. trachomatis,PCR Negative (Neg,Equiv); Chlamydia trachomatis Source Urine; N. gonorrhoeae,PCR Negative (Neg,Equiv); Neisseria Source Urine
== END 2022-07-17 11:16 | disposition home or self-care (01) ==
LOC: EC 08:53
DX: R30.0 Dysuria (principal)
CPT/HCPCS: 81003; 87491; 87591; 99283; 96372; J0696

== ENCOUNTER 2022-08-08 23:36 | Emergency (ER) | payer OTHER ==
[2022-08-08 23:44] VITALS: TEMP 98.3
[2022-08-09] MEDS ORDERED: ORPHENADRINE 30 MG/ML 2 ML VIAL IM STA (00:45)
[2022-08-09] MEDS ORDERED: KETOROLAC 15 MG/ML 1 ML VIAL IM STA (00:45)
[2022-08-09] MEDS ORDERED: DEXAMETHASONE SOD PHOSPHATE 10 MG/ML 1 ML VIAL IM STA (00:45)
--- NOTE | 2022-08-09 01:33 | ED ---
Back Pain HPI - General Chief Complaint: Back Pain/Injury Stated Complaint: Back Pain Time Seen by Provider: 08/09/22 00:20 Source: patient Limitations: no limitations - History of Present Illness Initial Comments: Patient is a 41-year-old male presenting with chief complaint of back pain. Patient was at work today when he twisted to his right, he felt sudden onset of tightening in his back, particularly on his left side. No injury or trauma. Pain is worse at the shoulder and mid back. Pain is worse with range of motion and improved with rest. Patient has chronic back pain. No loss of bowel or bladder control or saddle paresthesia. No numbness or tingling. No loss of range of motion. No weakness. No lower back pain. No chest pain, shortness of breath, palpitations, fever, chills, nausea, vomiting, diaphoresis. - Related Data Previous Rx's Medication Instructions Recorded Acyclovir 800 mg PO TID 5 Days #15 tab 07/10/22 Doxycycline [Vibramycin] 100 mg PO BID #14 capsule 07/17/22 Cyclobenzaprine [Flexeril] 10 mg PO TID PRN #15 tab 08/09/22 Allergies Allergy/AdvReac Type Severity Reaction Status Date / Time No Known Allergies Allergy Verified 08/08/22 23:44 Review of Systems ROS Statement: Those systems with pertinent positive or pertinent negative responses have been documented in the HPI. ROS Other: All systems not noted in ROS Statement are negative. Past Medical History Past Medical History: No Reported History Additional Past Medical History / Comment(s): back pain History of Any Multi-Drug Resistant Organisms: None Reported Past Surgical History: No Surgical Hx Reported Past Psychological History: No Psychological Hx Reported Smoking Status: Current every day smoker Past Alcohol Use History: None Reported Past Drug Use History: None Reported General Exam Limitations: no limitations General appearance: alert, in no apparent distress Head exam: Present: atraumatic, normocephalic, normal inspection Eye exam: Present: normal appearance, PERRL, EOMI. Absent: scleral icterus, conjunctival injection, periorbital swelling Neck exam: Present: normal inspection Respiratory exam: Present: normal lung sounds bilaterally. Absent: respiratory distress, wheezes, rales, rhonchi, stridor Cardiovascular Exam: Present: regular rate, normal rhythm, normal heart sounds. Absent: systolic murmur, diastolic murmur, rubs, gallop, clicks Extremities exam: Present: normal inspection, full ROM Back exam: Present: normal inspection, paraspinal tenderness. Absent: vertebral tenderness Neurological exam: Present: alert, oriented X3, CN II-XII intact Psychiatric exam: Present: normal affect, normal mood Skin exam: Present: warm, dry, intact, normal color. Absent: rash Course Vital Signs 08/08/22 08/09/22 08/09/22 23:42 00:34 01:35 Temperature 98.3 F Pulse Rate 86 87 72 Respiratory 18 12 15 Rate Blood Pressure 112/72 108/76 126/77 O2 Sat by Pulse 99 99 100 Oximetry Medical Decision Making - Medical Decision Making Patient is a 41-year-old male presenting with chief complaint of back pain. Patient has no red flag symptoms, chest pain, difficulty breathing, nausea, vomiting, radiation of pain down the arm or up the neck. Physical examination shows paraspinal muscle tenderness and muscle spasm. Patient is given pain medication, on reassessment he reports improvement. Patient is discharged with prescription for cyclobenzaprine, advised not to take before driving or operating heavy machinery as may cause drowsiness. Follow-up with PCP. Report back to ER with any new or worsening symptoms. Discussed return parameters and answered all questions. Patient conveyed verbal understanding and agreed to the plan. I discussed this case in detail with my attending Dr. Patrick Disposition Clinical Impression: Mechanical back pain Disposition: HOME SELF-CARE Condition: Good Instructions (If sedation given, give patient instructions): Back Pain (ED) Additional Instructions: Follow-up with PCP. Report back to ER with any new or worsening symptoms. Take medication as prescribed. Prescriptions: Cyclobenzaprine [Flexeril] 10 mg PO TID PRN #15 tab PRN Reason: Spasms Is patient prescribed a controlled substance at d/c from ED?: No Referrals: Juventino Magana MD [Primary Care Provider] - 1-2 days Time of Disposition: 01:32
[2022-08-09 01:38] VITALS: BP 126/77; PULSE 72; RESP 15
== END 2022-08-09 01:38 | disposition home or self-care (01) ==
LOC: EC 23:36
DX: M54.50 Low back pain, unspecified (principal); F17.200 Nicotine dependence, unspecified, uncomplicated
CPT/HCPCS: 99283; 96372 ×3; J1100; J2360; J1885

== ENCOUNTER 2023-09-03 21:09 | Emergency (ER) | payer OTHER ==
[2023-09-03 21:33] VITALS: RESP 18; TEMP 98.6
[2023-09-03 22:25] VITALS: BP 108/78; PULSE 97
--- NOTE | 2023-09-03 23:47 | ED ---
Extremity Problem HPI - General Chief complaint: Extremity Problem,Nontraumatic Stated complaint: Left Leg pain Time Seen by Provider: 09/03/23 22:09 Source: patient Mode of arrival: ambulatory Limitations: no limitations - History of Present Illness Initial comments: 42-year-old male presenting with chief complaint of left calf pain. Patient states that he was walking when he felt a little off in his left calf. He has been having some discomfort with ambulating;. He has full range of motion of the foot. No lower extremity swelling. No discoloration. No chest pain or difficulty breathing. No fevers or chills. No erythema. - Related Data Previous Rx's Medication Instructions Recorded Acyclovir 800 mg PO TID 5 Days #15 tab 07/10/22 Doxycycline [Vibramycin] 100 mg PO BID #14 capsule 07/17/22 Cyclobenzaprine [Flexeril] 10 mg PO TID PRN #15 tab 08/09/22 Allergies Allergy/AdvReac Type Severity Reaction Status Date / Time No Known Allergies Allergy Verified 09/03/23 21:25 Review of Systems ROS Statement: Those systems with pertinent positive or pertinent negative responses have been documented in the HPI. ROS Other: All systems not noted in ROS Statement are negative. Past Medical History Past Medical History: No Reported History Additional Past Medical History / Comment(s): back pain History of Any Multi-Drug Resistant Organisms: None Reported Past Surgical History: No Surgical Hx Reported Past Psychological History: No Psychological Hx Reported Smoking Status: Current every day smoker Past Alcohol Use History: None Reported Past Drug Use History: None Reported General Exam Limitations: no limitations General appearance: alert, in no apparent distress Head exam: Present: atraumatic, normocephalic, normal inspection Eye exam: Present: normal appearance, EOMI Neck exam: Present: normal inspection, full ROM Respiratory exam: Absent: respiratory distress Left Lower Leg exam: Present: normal inspection, full ROM, tenderness. Absent: swel ling, abrasion, ecchymosis, deformity, erythema Neurovascular tendon exam: Present: no vascular compromise Neurological exam: Present: alert, oriented X3 Psychiatric exam: Present: normal affect, normal mood Skin exam: Present: warm, dry, intact, normal color. Absent: rash Course Vital Signs 09/03/23 09/03/23 21:25 21:58 Temperature 98.6 F 98.6 F Pulse Rate 98 97 Respiratory 18 18 Rate Blood Pressure 112/79 108/78 O2 Sat by Pulse 98 96 Oximetry Medical Decision Making - Medical Decision Making Was pt. sent in by a medical professional or institution ([facility], [facility], urgent care, hospital, or snf...) When possible be specific @ -No Did you speak to anyone other than the patient for history (EMS, parent, family, police, friend...)? What history was obtained from this source @ -No Did you review nursing and triage notes (agree or disagree)? Why? @ -I reviewed and agree with nursing and triage notes Were old charts reviewed (outside hosp., previous admission, EMS record, old EKG, old radiological studies, urgent care reports/EKG's, snf records)? Report findings @ -No old charts were reviewed Differential Diagnosis (chest pain, altered mental status, abdominal pain women, abdominal pain men, vaginal bleeding, weakness, fever, dyspnea, syncope, headache, dizziness, GI bleed, back pain, seizure, CVA, palpatations, mental health, musculoskeletal)? @ -Differential Musculoskeletal Muscular strain, contusion, ligament sprain, fracture, arthritis, septic arthritis, bursitis, cellulitis, muscle spasm, nerve compression, DVT, arterial occlusion, herpes zoster, electrolyte abnormality, tumor.... This is not meant to be in all inclusive list EKG interpreted by me (3pts min.). @ -As above X-rays interpreted by me (1pt min.). @ -X-ray shows no fracture or dislocation CT interpreted by me (1pt min.). @ -None done U/S interpreted by me (1pt. min.). @ -None done What testing was considered but not performed or refused? (CT, X-rays, U/S, labs)? Why? @ -None What meds were considered but not given or refused? Why? @ -None Did you discuss the management of the patient with other professionals (professionals i.e. [facility], [facility], lab, RT, psych nurse, social services director, lace pinner, teacher, cavalry officer, case resolution specialist)? Give summary @ -No Was smoking cessation discussed for >3mins.? @ -No Was critical care preformed (if so, how long)? @ -No Were there social determinants of health that impacted care today? How? ( Homelessness, low income, unemployed, alcoholism, drug addiction, transportation, low edu. Level, literacy, decrease access to med. care, [facility], rehab)? @ -No Was there de-escalation of care discussed even if they declined (Discuss DNR or withdrawal of care, Hospice)? DNR status @ -No What co-morbidities impacted this encounter? (DM, HTN, Smoking, COPD, CAD, Cancer, CVA, ARF, Chemo, Hep., AIDS, mental health diagnosis, sleep apnea, morbid obesity)? @ -None Was patient admitted / discharged? Hospital course, mention meds given and route, prescriptions, significant lab abnormalities, going to OR and other pertinent info. @ -42-year-old male presenting with chief complaint of left calf pain. He felt a pop while walking today. He reports that his pain has improved after applying knee and ankle brace. He is neurovascularly intact. There is a negative Romero test. X-ray is negative. Patient educated on today's findings and supportive management at home.Follow-up with PCP. Report back to ER with any new or worsening symptoms. Discussed return parameters and answered all questions. Patient conveyed verbal understanding and agreed to the plan. I discussed this case in detail with my attending Dr. Mcconnell Undiagnosed new problem with uncertain prognosis? @ -No Drug Therapy requiring intensive monitoring for toxicity (Heparin, Nitro, Insulin, Cardizem)? @ -No Were any procedures done? @ -No Diagnosis/symptom? @ -Left calf strain Acute, or Chronic, or Acute on Chronic? @ -Acute Uncomplicated (without systemic symptoms) or Complicated (systemic symptoms)? @ -Uncomplicated Side effects of treatment? @ -No Exacerbation, Progression, or Severe Exacerbation? @ -No Poses a threat to life or bodily function? How? (Chest pain, [place], [place], pneumonia, PE, COPD, DKA, ARF, appy, cholecystitis, CVA, Diverticulitis, Homicidal, Suicidal, threat to staff... and all critical care pts) @ -No Disposition Clinical Impression: Strain of calf muscle Disposition: HOME SELF-CARE Condition: Good Instructions (If sedation given, give patient instructions): Muscle Strain (ED) Additional Instructions: Follow-up with PCP. Report back to ER with any new or worsening symptoms. Rest, ice, elevate the leg. Take Motrin and Tylenol as needed for pain control. Is patient prescribed a controlled substance at d/c from ED?: No Referrals: Juventino Magana MD [Primary Care Provider] - 1-2 days Time of Disposition: 23:47
--- NOTE | 2023-09-04 01:38 | XR ---
EXAM: XR Left Tibia and Fibula, 2 Views CLINICAL HISTORY: ITS.REASON XR Reason: pain, no injury TECHNIQUE: Frontal and lateral views of the left tibia and fibula. COMPARISON: None FINDINGS: Bones/joints: No displaced fracture or dislocation identified. Joint space is maintained. No bony lesion. Soft tissues: Mild soft tissue swelling. No radiopaque foreign body identified. IMPRESSION: No displaced fracture or dislocation identified.
== END 2023-09-03 23:57 | disposition home or self-care (01) ==
LOC: EC 21:09
DX: S86.912A Strain of unspecified muscle(s) and tendon(s) at lower leg level, left leg, initial encounter (principal); F17.200 Nicotine dependence, unspecified, uncomplicated; X50.1XXA Overexertion from prolonged static or awkward postures, initial encounter; Y93.01 Activity, walking, marching and hiking
CPT/HCPCS: 99283